=== PATIENT | male | born 1995 | race Two or more races ===

== ENCOUNTER 2022-04-21 22:21 | Emergency (ER) | payer BC ==
[2022-04-21] MEDS ORDERED: Diphtheria,Pertussis(Acell),Tetanus Vaccine 0.5 ML Syringe IM ONE (22:39)
== END 2022-04-21 22:56 | disposition home or self-care (01) ==
LOC: JD.ED 22:21
DX: S61.411A Laceration without foreign body of right hand, initial encounter (principal); Z23 Encounter for immunization; W26.8XXA Contact with other sharp object(s), not elsewhere classified, initial encounter; Y99.0 Civilian activity done for income or pay
CPT/HCPCS: 90471; 90715; 99282